=== PATIENT | female | born 1980 | race Two or more races ===

== ENCOUNTER 2023-06-12 10:27 | Outpatient (CLI) | payer OTHER | END 2023-06-12 10:40 | disposition home or self-care (01) | LOC: SONOGRAMA 10:27 | PROVIDERS: ATTEND Pathology Anatomic Pathology & Clinical Pathology | DX: D34 Benign neoplasm of thyroid gland (principal); E07.89 Other specified disorders of thyroid; E04.1 Nontoxic single thyroid nodule; D11.0 Benign neoplasm of parotid gland; C07 Malignant neoplasm of parotid gland ==

== ENCOUNTER 2025-01-20 07:37 | Outpatient (CLI) | payer OTHER | END 2025-01-20 07:41 | disposition home or self-care (01) | LOC: SONOGRAMA 07:37 | PROVIDERS: ATTEND Pathology Anatomic Pathology | DX: D34 Benign neoplasm of thyroid gland (principal); E07.89 Other specified disorders of thyroid; E04.2 Nontoxic multinodular goiter ==